=== PATIENT | female | born 2000 | race Caucasian/White ===

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

== ENCOUNTER 2021-04-17 17:39 | Emergency (ER) | payer BC ==
[~2021-04-17] VITALS: Ht 157.5 cm; Wt 70.3 kg
[2021-04-17 17:44] VITALS: BP 135/88
[2021-04-17 17:53] LABS: BASOPHILS # (AUTO) 0.1 10^3/uL (0.0-0.1); BASOPHILS % (AUTO) 1 % (0-10); EOSINOPHILS # (AUTO) 0.1 10^3/uL (0.0-0.3); EOSINOPHILS % (AUTO) 1 % (0-10); HEMATOCRIT 43 % (35-52); HEMOGLOBIN 14.9 g/dL (11.5-16.0); LYMPHOCYTES # (AUTO) 2.9 10^3/uL (1.0-4.0); LYMPHOCYTES % (AUTO) 35 % (12-44); MEAN CORPUSCULAR HEMOGLOBIN 33 pg (25-34); MEAN CORPUSCULAR HGB CONC 35 g/dL (32-36); MEAN CORPUSCULAR VOLUME 95 fL (80-99); MEAN PLATELET VOLUME 9.9 fL (9.0-12.2); MONOCYTES # (AUTO) 0.4 10^3/uL (0.0-1.0); MONOCYTES % (AUTO) 5 % (0-12); NEUTROPHILS # (AUTO) 4.7 10^3/uL (1.8-7.8); NEUTROPHILS % (AUTO) 58 % (42-75); PLATELET COUNT 220 10^3/uL (130-400); WHITE BLOOD COUNT 8.1 10^3/uL (4.3-11.0)
--- NOTE | 2021-04-17 17:59 | ED General ---
General Stated Complaint: TYPE 1 DIABETIC/POSS DKA Source of Information: Patient Exam Limitations: No Limitations History of Present Illness Date Seen by Provider: Apr 17, 2021 Time Seen by Provider: 17:56 Initial Comments To ER with c/o concern for DKA. She is type 1 diabetic who follows with [facility]. She developed some nasal congestion and body aches on Saturday. Whenever she gets any sort of viral illness she develops ketonuria and hyperglycemia. She has been bolusing herself with NovoLog and taking her baseline Levemir at home in an attempt to control the hyperglycemia and subsequently the ketonuria. She was subsequently seen out at urgent care today and was found to be hyperglycemic and referred to the emergency room. No fevers or chills. She had a negative Covid swab and a negative flu swab at urgent care just a few minutes ago. No fevers. Timing/Duration: 1-2 Days Severity: Moderate Associated Systoms: Denies Symptoms Allergies and Home Medications Allergies Coded Allergies: No Known Drug Allergies (Unverified , 07/10/18) Patient Home Medication List Home Medication List Reviewed: Yes [Novolog] , (Reported) Entered as Reported by: NURY SOSA on 09/14/18 1511 Review of Systems Review of Systems Constitutional: see HPI, malaise EENTM: see HPI Respiratory: no symptoms reported Cardiovascular: no symptoms reported Genitourinary: no symptoms reported Musculoskeletal: no symptoms reported Skin: no symptoms reported Psychiatric/Neurological: No Symptoms Reported Hematologic/Lymphatic: No Symptoms Reported Past Twbruyw-Oovxid-Ftogdg Hx Immunizations Up To Date Tetanus Booster (TDap): Less than 5yrs PED Vaccines UTD: Yes Seasonal Allergies Seasonal Allergies: No Past Medical History Surgeries: Yes (LEFT EYE (STRABISMUS)) Adenoidectomy, Tonsillectomy Respiratory: No Cardiac: No Neurological: No Genitourinary: No Gastrointestinal: No Musculoskeletal: No Endocrine: Yes (WEARS INSULIN PUMP) Diabetes, Insulin dep, Hypothyroidsim HEENT: No Cancer: No Psychosocial: No Integumentary: No Blood Disorders: No Physical Exam Vital Signs Vital Signs - First Documented 04/17/21 17:44 Temp 36.5 Pulse 79 Resp 16 B/P (MAP) 135/88 (104) Pulse Ox 98 O2 Delivery Room Air Capillary Refill : Height, Weight, BMI Height: 5'2.00" Weight: 170lbs. oz. [id number]; 28.12 BMI Method:Stated General Appearance: No Apparent Distress, WD/WN, Other (Currently she is not nauseated. She is alert oriented pleasant no distress) Eyes: Bilateral Eye Normal Inspection, Bilateral Eye PERRL, Bilateral Eye EOMI HEENT: PERRL/EOMI, TMs Normal Neck: Full Range of Motion, Normal Inspection Respiratory: No Accessory Muscle Use, No Respiratory Distress Cardiovascular: Regular Rate, Rhythm, Normal Peripheral Pulses Gastrointestinal: Normal Bowel Sounds, Non Tender, Soft Extremity: Normal Capillary Refill, Normal Inspection Neurologic/Psychiatric: Alert, Oriented x3 Skin: Normal Color, Warm/Dry Progress/Results/Core Measures Suspected Sepsis SIRS Temperature: Pulse: Respiratory Rate: Laboratory Tests 04/17/21 17:44: White Blood Count 8.1 Blood Pressure / Mean: Laboratory Tests 04/17/21 17:44: Creatinine 0.93, Platelet Count 220, Total Bilirubin 0.3 Results/Orders Lab Results Laboratory Tests Test 04/17/21 17:44 04/17/21 17:50 04/17/21 18:50 04/17/21 19:47 Range/Units White Blood Count 8.1 4.3-11.0 10^3/uL Red Blood Count 4.52 3.80-5.11 10^6/uL Hemoglobin 14.9 11.5-16.0 g/dL Hematocrit 43 35-52 % Mean Corpuscular Volume 95 80-99 fL Mean Corpuscular Hemoglobin 33 25-34 pg Mean Corpuscular Hemoglobin Concent 35 32-36 g/dL Red Cell Distribution Width 11.3 10.0-14.5 % Platelet Count 220 130-400 10^3/uL Mean Platelet Volume 9.9 9.0-12.2 fL Immature Granulocyte % (Auto) 0 % Neutrophils (%) (Auto) 58 42-75 % Lymphocytes (%) (Auto) 35 12-44 % Monocytes (%) (Auto) 5 0-12 % Eosinophils (%) (Auto) 1 0-10 % Basophils (%) (Auto) 1 0-10 % Neutrophils # (Auto) 4.7 1.8-7.8 10^3/uL Lymphocytes # (Auto) 2.9 1.0-4.0 10^3/uL Monocytes # (Auto) 0.4 0.0-1.0 10^3/uL Eosinophils # (Auto) 0.1 0.0-0.3 10^3/uL Basophils # (Auto) 0.1 0.0-0.1 10^3/uL Immature Granulocyte # (Auto) 0.0 0.0-0.1 10^3/uL Sodium Level 136 135-145 MMOL/L Potassium Level 4.1 3.6-5.0 MMOL/L Chloride Level 103 98-107 MMOL/L Carbon Dioxide Level 20 L 21-32 MMOL/L Anion Gap 13 5-14 MMOL/L Blood Urea Nitrogen 13 7-18 MG/DL Creatinine 0.93 0.60-1.30 MG/DL Estimat Glomerular Filtration Rate 75 BUN/Creatinine Ratio 14 Glucose Level 400 H 70-105 MG/DL Calcium Level 8.8 8.5-10.1 MG/DL Corrected Calcium 9.0 8.5-10.1 MG/DL Total Bilirubin 0.3 0.1-1.0 MG/DL Aspartate Amino Transf (AST/SGOT) 15 5-34 U/L Alanine Aminotransferase (ALT/SGPT) 12 0-55 U/L Alkaline Phosphatase 49 40-136 U/L Total Protein 7.0 6.4-8.2 GM/DL Albumin 3.8 3.2-4.5 GM/DL Beta-Hydroxybutyrate (Chem panel) 0.59 H 0.00-0.27 MMOL/L Serum Test, Qualitative NEGATIVE NEGATIVE Glucometer 394 H 216 H 70-110 MG/DL Urine Color YELLOW Urine Clarity CLEAR Urine pH 6.0 5-9 Urine Specific [place] 1.020 1.016-1.022 Urine Protein NEGATIVE NEGATIVE Urine Glucose (UA) 3+ H NEGATIVE Urine Ketones 1+ H NEGATIVE Urine Nitrite NEGATIVE NEGATIVE Urine Bilirubin NEGATIVE NEGATIVE Urine Urobilinogen 0.2 < = 1.0 MG/DL Urine Leukocyte Esterase NEGATIVE NEGATIVE Urine RBC (Auto) NEGATIVE NEGATIVE Urine RBC 2-5 H /HPF Urine WBC NONE /HPF Urine Crystals NONE /LPF Urine Bacteria NEGATIVE /HPF Urine Casts NONE /LPF Urine Mucus NEGATIVE /LPF Urine Culture Indicated NO My Orders Orders - [place] [employer] Beta Hydroxybutyrate (04/17/21 17:48) Hcg,Qualitative Serum (04/17/21 17:48) Cbc With Automated Diff (04/17/21 17:48) Comprehensive Metabolic Panel (04/17/21 17:48) Ua Culture If Indicated (04/17/21 17:48) Ed Iv/Invasive Line Start (04/17/21 17:48) Accucheck Stat ONCE (04/17/21 17:48) Insulin (Regular) Human (Novolin R (Per (04/17/21 18:00) Lactated Ringers (Lr 1000 Ml Iv Solution (04/17/21 18:00) Accucheck Stat ONCE (04/17/21 19:38) Vital Signs/I&O 04/17/21 17:44 Temp 36.5 Pulse 79 Resp 16 B/P (MAP) 135/88 (104) Pulse Ox 98 O2 Delivery Room Air Capillary Refill : Departure Impression Primary Impression: Hyperglycemia Additional Impression: Viral syndrome Disposition: 01 HOME, SELF-CARE Condition: Stable Departure-Patient Inst. Decision time for Depature: 19:53 Referrals: NO,LOCAL PHYSICIAN (PCP/Family) Primary Care Physician Patient Instructions: VIRAL SYNDROME [place] [employer] Apr 17, 2021 17:59
[2021-04-17] MEDS ORDERED: inSUlin (REGULAR) HUMAN 1 UNIT/0.01 ML (CHARGE PER UNIT) IV SCH (18:00)
[2021-04-17] MEDS ORDERED: LACTATED RINGERS 1,000 ML IV SCH (18:00)
[2021-04-17 18:06] LABS: ALBUMIN 3.8 GM/DL (3.2-4.5)
[2021-04-17 18:07] LABS: POTASSIUM 4.1 MMOL/L (3.6-5.0)
[2021-04-17 18:08] LABS: CALCIUM 8.8 MG/DL (8.5-10.1)
[2021-04-17 18:11] LABS: BILIRUBIN,TOTAL 0.3 MG/DL (0.1-1.0)
[2021-04-17 18:13] LABS: CREATININE SERUM 0.93 MG/DL (0.60-1.30)
[2021-04-17 18:57] LABS: BILIRUBIN,URINE NEGATIVE (NEGATIVE); CLARITY,URINE CLEAR; COLOR,URINE YELLOW; GLUCOSE, URINE (UA) 3+ (NEGATIVE); KETONES,URINE 1+ (NEGATIVE); LEUKOCYTE ESTERASE ,URINE NEGATIVE (NEGATIVE); NITRITE,URINE NEGATIVE (NEGATIVE); PROTEIN,URINE NEGATIVE (NEGATIVE)
[2021-04-17 19:31] LABS: BACTERIA,URINE NEGATIVE /HPF
== END 2021-04-17 20:05 | disposition home or self-care (01) ==
LOC: EDUNIT# 17:39 → ER 17:40
DX: R73.9 Hyperglycemia, unspecified (principal); B34.9 Viral infection, unspecified
CPT/HCPCS: 36415; 80053; 81000; 82010; 82947; 84703; 85025; 96361; 96374

== ENCOUNTER → 2021-08-10 | Outpatient (REF) ==
--- NOTE | 2021-08-10 10:30 | Diagnostic Imaging Report ---
INDICATION: FELL AND HIT LATERAL SIDE OF KNEE ON FLOOR, NOW WITH PAIN. COMPARISON: None. FINDINGS: Multiple radiographic views of the right knee joint demonstrate no acute fracture or dislocation. No focal osseous lesions are seen. No significant joint effusion is seen. The surrounding soft tissue structures are unremarkable. There are no radiopaque foreign bodies. IMPRESSION: 1. No acute fractures or dislocations of the right knee joint. Dictated by: Dictated on workstation # [id number]
== END ==
LOC: OCC 08:40
PROVIDERS: ATTEND Nurse Practitioner Family
DX: M25.561 Pain in right knee (principal)
CPT/HCPCS: 73562

== ENCOUNTER 2022-02-27 16:51 | Emergency (ER) | payer BC ==
[~2022-02-27] VITALS: Ht 157.2 cm; Wt 72.5 kg
--- NOTE | 2022-02-27 17:03 | ED General ---
General Chief Complaint: Glucose Problems Stated Complaint: LOW BLOOD SUGARS Source of Information: Patient Exam Limitations: No Limitations History of Present Illness Date Seen by Provider: Feb 27, 2022 Time Seen by Provider: 17:02 Initial Comments This is a well-appearing 22-year-old female who presented to the ER via [facility] for concerns of low blood sugar. States she had recently adjusted her insulin with her primary care provider due to hyperglycemia and recently she has been having quite a few low blood sugar readings. Today she was at her apartment and she was going in and out of consciousness, her meter was reading 20s. Her mom called EMS for a wellness check. Upon arrival EMS had a blood glucose of 25, she had already drank a can of soda and ate about a half a jar of peanut butter at that time. Allergies and Home Medications Allergies Coded Allergies: No Known Drug Allergies (Unverified , 07/10/18) Patient Home Medication List [Novolog] , (Reported) Entered as Reported by: NURY SOSA on 09/14/18 1511 Past Bfjhgrm-Qudhzl-Pbqqap Hx Immunizations Up To Date Tetanus Booster (TDap): Less than 5yrs PED Vaccines UTD: Yes First/Initial COVID19 Vaccinat: august 2020 Second COVID19 Vaccination Moisés: september 2020 Seasonal Allergies Seasonal Allergies: No Past Medical History Surgeries: Yes (LEFT EYE (STRABISMUS)) Adenoidectomy, Tonsillectomy Respiratory: No Cardiac: No Neurological: No Genitourinary: No Gastrointestinal: No Musculoskeletal: No Endocrine: Yes (WEARS INSULIN PUMP) Diabetes, Insulin dep, Hypothyroidsim HEENT: No Cancer: No Psychosocial: No Integumentary: No Blood Disorders: No Physical Exam Vital Signs Vital Signs - First Documented 02/27/22 16:51 Temp 36.2 Pulse 86 Resp 16 B/P (MAP) 142/86 (104) Pulse Ox 100 O2 Delivery Room Air Capillary Refill : Height, Weight, BMI Height: 5'2.00" Weight: 170lbs. oz. [id number]; 28.00 BMI Method:Stated Progress/Results/Core Measures Suspected Sepsis SIRS Temperature: Pulse: Respiratory Rate: Blood Pressure / Mean: Results/Orders Lab Results Laboratory Tests Test 02/27/22 17:35 02/27/22 19:15 Range/Units Glucometer 68 L 158 H 70-110 MG/DL My Orders Orders - DONNIE NARANJO INTERVENTION ANALYST General/Regular (02/27/22 Dinner) Vital Signs/I&O 02/27/22 16:51 Temp 36.2 Pulse 86 Resp 16 B/P (MAP) 142/86 (104) Pulse Ox 100 O2 Delivery Room Air Capillary Refill : Departure Impression Primary Impression: Hypoglycemia Disposition: HOME, SELF-CARE Condition: Improved Departure-Patient Inst. Decision time for Depature: 18:19 Referrals: TODD BLANK (PCP) Primary Care Physician NO,[facility] PH[facility]IAN (Family) Primary Care Physician Patient Instructions: Diabetes Type 1, Adult (DC) Add. Discharge Instructions: Plan: 1. Decreased long acting insulin to 15 units every morning and change your meal time insulin from 4 units to 2 units. 2. Call your doctor tomorrow to review the changes. 3. If your blood sugar drops below 60 make sure you drink simple carbs (regular soda, juice) etc. and then follow with protein (peanut butter or cheese). 4. Return to ER for any new, concerning, or worsening symptoms. All discharge instructions reviewed with patient and/or family. Voiced understanding. DONNIE NARANJO INTERVENTION ANALYST Feb 27, 2022 17:03
[2022-02-27 19:47] VITALS: BP 117/86
== END 2022-02-27 19:46 | disposition home or self-care (01) ==
LOC: EDUNIT# 16:51 → ER 16:54
DX: E11.649 Type 2 diabetes mellitus with hypoglycemia without coma (principal); Z96.41 Presence of insulin pump (external) (internal)
CPT/HCPCS: 82947